=== PATIENT | female | born 1940 | race Caucasian/White ===

== ENCOUNTER 2023-03-05 05:58 | Emergency (ER) | payer MEDICARE, OTHER ==
[~2023-03-05] VITALS: Ht 162.6 cm; Wt 63.0 kg
[2023-03-05] MEDS ORDERED: OXYMETAZOLINE HCL 0.05 % NASAL SPRAY 15ML EACHNOSTRI ONE (06:30)
[2023-03-05 06:57] LABS: Basophils # (auto) 0.1 10 ^3/uL (0-0.2); Basophils % (auto) 0.9 % (0.0-2.0); Eosinophils # (auto) 0.1 10 ^3/uL (0-0.8); Eosinophils % (auto) 1.5 % (0.0-7.0); Hematocrit 30.4 % (36.0-46.0); Lymphocytes # (auto) 1.1 10 ^3/uL (0.4-5.4); Lymphocytes % (auto) 15.4 % (10.0-50.0); Mean Corpuscular Hemoglobin 31.1 pg (28.0-32.0); Mean Corpuscular Hgb Conc. 32.9 g/dL (32.0-36.0); Mean Corpuscular Volume 94.5 fL (80.0-100.0); Monocytes # (auto) 0.7 10 ^3/uL (0-1.3); Monocytes % (auto) 9.4 % (0.0-12.0); Neutrophils # (auto) 5.1 10 ^3/uL (1.6-8.6); Neutrophils % (auto) 72.8 % (37.0-80.0); Nucleated Red Blood Cells % 0.1 %; Red Blood Cells 3.22 10^6/uL (4.0-5.20); Red Cell Distribution Width 15.4 % (11.8-14.3)
[2023-03-05 07:03] LABS: INR 1.3 (0.9-1.15); Partial Thromboplastin Time 33.5 SEC (24.5-34.5); Prothrombin Time 13.4 sec (9.3-11.8)
[2023-03-05 07:07] LABS: Bilirubin, Total 1.2 mg/dL (0.2-1.0)
[2023-03-05 07:08] LABS: Total Protein 7.2 g/dL (5.7-8.2)
[2023-03-05 07:50] LABS: Alanine Aminotransferase 12 U/L (7-40); Albumin 3.9 g/dL (3.2-4.8); Alkaline Phosphatase 65 U/L (46-116); Anion Gap 10 (5-15); Aspartate Aminotransferase 25 U/L (13-40); BUN/Creatinine Ratio 15.6 (10.0-20.0); Blood Urea Nitrogen 43 mg/dL (9-23); Calcium 10.2 mg/dL (8.7-10.4); Carbon Dioxide 25 mmol/L (20-30); Chloride 106 mmol/L (98-107); Glucose 123 mg/dL (74-106); Potassium 4.1 mmol/L (3.5-5.1); Sodium 141 mmol/L (136-145)
[2023-03-05 08:45] VITALS: PULSE 70; RESP 16; TEMP 97.6; O2SAT 92
[2023-03-05 12:33] VITALS: BP 150/89; PULSE 85; RESP 16; O2SAT 98
== END 2023-03-05 12:33 | disposition home or self-care (01) ==
LOC: ER 05:58
DX: R04.0 Epistaxis (principal); I12.9 Hypertensive chronic kidney disease with stage 1 through stage 4 chronic kidney disease, or unspecified chronic kidney disease; E11.22 Type 2 diabetes mellitus with diabetic chronic kidney disease; N18.9 Chronic kidney disease, unspecified; E78.5 Hyperlipidemia, unspecified; I25.10 Atherosclerotic heart disease of native coronary artery without angina pectoris
CPT/HCPCS: 30901; 36415; 80053; 85025; 85610; 85730

== ENCOUNTER 2023-07-25 10:46 | Emergency (ER) | payer MEDICARE, OTHER ==
[~2023-07-25] VITALS: Ht 162.6 cm; Wt 73.6 kg
[2023-07-25 10:47] VITALS: PULSE 0; RESP 10
[2023-07-25] MEDS ORDERED: ATROPINE SULF 1 MG/10ml SYR IM ONE (10:47)
[2023-07-25] MEDS ORDERED: EPINEPHrine HCL 1 MG/10 ML SYRG ONE ×2 (11:14→11:20)
[2023-07-25] MEDS ORDERED: NALOXONE HCL 0.4 MG/ML VIAL ONE (11:15)
[2023-07-25] MEDS ORDERED: DEXTROSE 50% SYRINGE 100 ML IV ONE (11:20)
[2023-07-25 11:30] VITALS: BP 77/49; PULSE 92; RESP 16; TEMP 90.2; O2SAT 91
== END 2023-07-25 12:13 ==
LOC: EDBD 10:46 → ER 10:46
DX: I46.9 Cardiac arrest, cause unspecified (principal); R00.1 Bradycardia, unspecified; R06.89 Other abnormalities of breathing; E11.22 Type 2 diabetes mellitus with diabetic chronic kidney disease; I12.9 Hypertensive chronic kidney disease with stage 1 through stage 4 chronic kidney disease, or unspecified chronic kidney disease; N18.9 Chronic kidney disease, unspecified; E78.5 Hyperlipidemia, unspecified
CPT/HCPCS: 31500; 36430; 36600; 82805; 86850; 86900; 86901; 86920; 87070; 87205; 92950; 99291; 99292; J0171; J2310; J7042; P9016; 87077; 87186